=== PATIENT | male | born 1975 | race American Indian/Alaskan Native ===

== ENCOUNTER 2017-04-27 04:59 | Emergency (ER) | payer SELFPAY ==
[2017-04-27 05:12] VITALS: RESP 17; TEMP 98.6; O2SAT 99
[2017-04-27] MEDS ORDERED: Acetaminophen-Codeine 300/30 mg Tab PO STA (05:45)
[2017-04-27] MEDS ORDERED: Acetaminophen-Codeine 300/30 mg Tab PO ONE (05:57)
--- NOTE | 2017-04-27 06:02 | C.PDOC ---
History Of Present Illness 42 year old male presents to the ER with a complaint of a toothache for the past 4 days. Denies tooth discharge or recent injury. Time Seen by Provider: 04/27/17 05:35 Chief Complaint (Nursing): Dental Pain History Per: Patient History/Exam Limitations: no limitations Onset/Duration Of Symptoms: Days Current Symptoms Are (Timing): Still Present Quality: Positive for: "Pain" Recent travel outside of the [place]: No Past Medical History Reviewed: Historical Data, Nursing Documentation, Vital Signs Vital Signs: Last Vital Signs Temp 98.6 F 04/27/17 06:15 Pulse 52 L 04/27/17 06:15 Resp 17 04/27/17 06:15 BP 118/77 04/27/17 06:15 Pulse Ox 99 04/27/17 06:15 - Medical History PMH: No Chronic Diseases Surgical History: No Surg Hx Family History: States: Unknown Family Hx - Social History Hx Alcohol Use: No Hx Substance Use: No - Immunization History Hx Tetanus Toxoid Vaccination: No Hx Influenza Vaccination: No Hx Pneumococcal Vaccination: No Review Of Systems Constitutional: Negative for: Fever ENT: Positive for: Mouth Pain. Negative for: Mouth Swelling, Throat Pain Physical Exam - Physical Exam Appears: Non-toxic, No Acute Distress Skin: Normal Color, Warm, Dry Head: Atraumatic, Normacephalic, No Swelling (Facial) Eye(s): bilateral: Normal Inspection, EOMI Ear(s): Bilateral: Normal Nose: Normal Oral Mucosa: Moist Tongue: Normal Appearing, No Swelling Lips: Normal Appearing, No Swelling Teeth: Other (Impacted left lower posterior molar) Gingiva: Swelling (minimal around left lower posterior molar) Neck: Normal, Supple ED Course And Treatment O2 Sat by Pulse Oximetry: 99 (Room air) Pulse Ox Interpretation: Normal Progress Note: Tylenol administered, patient reports improvement of pain. Patient instructed to take OTC pain medication as needed and to follow up with dentist for further evaluation. Disposition Counseled Patient/Family Regarding: Diagnosis, Need For Followup, Rx Given - Disposition Referrals: Dental clinic , [facility] [Other] Disposition: HOME/ ROUTINE Disposition Time: 06:00 Condition: STABLE Additional Instructions: Take meds as directed Follow up with dentist- look up Dental clinic at [facility] for follow up Return to ER if worse Prescriptions: Acetaminophen with Codeine [Tylenol with Codeine #3 Tablet] 1 each PO PRN PRN # 10 tablet PRN Reason: Pain, Severe (8-10) Ibuprofen [Motrin Tab] 800 mg PO QID #20 tab Penicillin VK [Penicillin VK Tab] 500 mg PO Q6H #20 tab Instructions: Toothache (ED) Forms: [facility] (Maori) - Clinical Impression Clinical Impression: Impacted molar - Scribe Statement The provider has reviewed the documentation as recorded by the Scribannita Brewer All medical record entries made by the Shellieibannita were at my direction and personally dictated by me. I have reviewed the chart and agree that the record accurately reflects my personal performance of the history, physical exam, medical decision making, and the department course for this patient. I have also personally directed, reviewed, and agree with the discharge instructions and disposition.
[2017-04-27 06:15] VITALS: BP 118/77
[2017-04-27 06:16] VITALS: PULSE 52
== END 2017-04-27 06:20 | disposition home or self-care (01) ==
LOC: C.ER 04:59
DX: K01.1 Impacted teeth (principal)